=== PATIENT | female | born 1985 | race Caucasian/White ===

== ENCOUNTER 2022-10-25 00:38 | Emergency (ER) | payer MEDICARE, MEDICAID ==
[~2022-10-25] VITALS: Ht 170.2 cm; Wt 64.0 kg
[2022-10-25] MEDS ORDERED: OLANZAPINE 10 MG/VIAL IM STA (00:48)
[2022-10-25] MEDS ORDERED: DIPHENHYDRAMINE 50MG/ML VIAL IM STA (00:48)
[2022-10-25 01:25] LABS: BASOPHILS % 0.1 % (0.0-2.0); HEMATOCRIT. 33.2 % (36.0-48.0); HEMOGLOBIN. 11.1 g/dL (12.0-16.0); LYMPHOCYTES % 8.7 % (20.0-50.0); MEAN CORPUSCULAR HEMOGLOBIN 29.3 pg (28.0-32.0); MEAN CORPUSCULAR VOLUME 87.5 fL (81.0-99.0); MEAN PLATELET VOLUME 7.6 fl (7.4-10.4); MONOCYTES % 3.9 % (2.0-8.0); NEUTROPHILS % 87.3 % (40.0-76.0); PLATELET 461 x1000/uL (130-400)
[2022-10-25 01:34] LABS: CHLORIDE 109 mEq/L (98-107)
[2022-10-25 01:36] LABS: HCG SCREEN NEGATIVE
[2022-10-25 01:41] LABS: CREATINE KINASE 336 IU/L (26-192); ETHANOL BLOOD < 10 mg/dL (-10)
[2022-10-25 02:25] LABS: CLARITY URINE CLOUDY (CLEAR); COLOR URINE DARK YELLOW (YELLOW); KETONES URINE 3+ (NEGATIVE); LEUKOCYTE ESTERASE URINE TRACE (NEGATIVE); NITRITE URINE NEGATIVE (NEGATIVE); OCCULT BLOOD URINE NEGATIVE (NEGATIVE); PH URINE 5.5 (4.5-8.0); PROTEIN URINE 1+ (NEGATIVE); SPECIFIC GRAVITY URINE 1.024 (1.005-1.030); UROBILINOGEN URINE 0.2 E.U./dL (0.2-1.0)
[2022-10-25 02:41] LABS: *AMPHETAMINES SCREEN URINE NEGATIVE (NEGATIVE); *BARBITURATES SCREEN URINE NEGATIVE (NEGATIVE); *COCAINE SCREEN URINE NEGATIVE (NEGATIVE); METHADONE URINE SCREEN NEGATIVE (NEGATIVE); OPIATES URINE SCREEN NEGATIVE (NEGATIVE); PHENCYCLIDINE URINE SCREEN NEGATIVE (NEGATIVE)
[2022-10-25 02:49] LABS: *BENZODIAZEPINES SCREEN URINE PRESUMTIVE POSITIVE (NEGATIVE); CANNABINOID URINE SCREEN PRESUMTIVE POSITIVE (NEGATIVE)
[2022-10-25] MEDS ORDERED: LORAZEPAM 2MG/ML CPJ IM STA (09:35)
[2022-10-25] MEDS ORDERED: OLANZAPINE 10 MG/VIAL IM ONE (09:45)
[2022-10-25] MEDS ORDERED: OLANZAPINE 5MG TABLET ODT PO SCH ×2 (13:30→17:00)
[2022-10-25] MEDS ORDERED: LORAZEPAM 2MG/ML CPJ IM NR (17:30)
[2022-10-25] MEDS ORDERED: OLANZAPINE 10 MG/VIAL IM NR (17:30)
[2022-10-25] MEDS ORDERED: ZIPRASIDONE MESYLATE 20MG/VIAL IM ONE (20:30)
[2022-10-25] MEDS ORDERED: LORAZEPAM 2MG/ML CPJ IM ONE (20:30)
[2022-10-25] MEDS: OLANZAPINE 5MG TABLET ODT PO SCH (21:08)
[2022-10-26] MEDS ORDERED: QUETIAPINE FUMARATE 50MG TABLET PO STA (03:13)
[2022-10-26] MEDS ORDERED: ACETAMINOPHEN 325MG TABLET PO ONE (03:30)
[2022-10-26] MEDS ORDERED: ZIPRASIDONE MESYLATE 20MG/VIAL IM NR (07:00)
[2022-10-26] MEDS: OLANZAPINE 5MG TABLET ODT PO SCH ×2 (09:41→21:00)
[2022-10-26] MEDS ORDERED: ZIPRASIDONE MESYLATE 20MG/VIAL IM ONE (14:45)
[2022-10-26] MEDS ORDERED: DIPHENHYDRAMINE 50MG/ML VIAL IM PRN (14:45)
[2022-10-26] MEDS ORDERED: LORAZEPAM 2MG/ML CPJ IM ONE (14:45)
[2022-10-26 22:15] VITALS: BP 120/68
== END 2022-10-26 22:44 ==
LOC: ER 00:38
DX: R45.1 Restlessness and agitation (principal); Z20.822 Contact with and (suspected) exposure to COVID-19
CPT/HCPCS: 36415; 80053; 80305; 80320; 81003; 82550; 84703; 85025; 87426; 96372; 99291; C9803; J1200; J2060; J3486; J3490; G0480